=== PATIENT | female | born 1965 | race African-American/Black ===

== ENCOUNTER 2016-08-18 09:49 | Emergency (ER) | payer OTHER ==
[~2016-08-18] VITALS: Ht 170.2 cm; Wt 144.6 kg
[~2016-08-18 09:49] MED LIST: ATORVASTATIN CA40 MG PO; CELECOXIB200 MG PO; CLONAZEPAM0.5 MG PO; COMPAZINE10 MG PO; CYMBALTA20 MG PO; CYMBALTA60 MG PO; DECADRON4 MG PO; DILAUDID2 MG PO; FENTANYL1 EAC5 TD; FLAGYL500 MG PO; FLEXERIL10 MG PO; FLUOXETINE HCL20 MG PO; FOLIC ACID1 MG PO; HYDROCODON-ACE1 EAC7 PO; HYDROCODON-ACE1 EAC8 PO; K-DUR20 MEQ PO; KLONOPIN1 MG PO; LIDOCAINE700 MG TD; LISINOPRIL10 MG PO; LOPRESSOR25 MG PO; LYRICA75 MG PO; MAG-OXIDE400 MG PO; MEDROL DOSEPAK4 MG PO; MEGACE20 MG PO; METFORMIN HCL1000 MG PO; METFORMIN HCL500 MG PO; METFORMIN HCL850 MG PO; MORPHINE SULFAT15 M1 PO; NAPROSYN500 MG PO; NITROSTAT0.4 MG SL; OXYCODONE HCL15 MG PO; OXYCODONE HCL5 MG PO; PERCOCET 5/31 TABLET PO; PREDNISONE20 MG PO; PROMETHAZINE HC25 M1 PO; RISPERDAL2 MG PO; RISPERIDONE1 MG PO; SERTRALINE HCL25 MG PO; SERTRALINE HCL50 MG PO; SIMVASTATIN10 MG PO; TRAMADOL PO; TRAZODONE HCL50 MG PO; Tums,OsCal PO; ULTRAM50 MG PO; VALIUM2 MG PO; VALIUM5 MG PO; VICODIN 5-3001 EACH PO; ZESTRIL2.5 MG PO; ZOCOR10 MG PO; ZOFRAN ODT4 MG PO; ZOFRAN4 MG PO
[2016-08-18] MEDS ORDERED: MORPHINE SULFAT30 M2 PO (10:40)
[2016-08-18] MEDS ORDERED: OXYCODONE HCL30 MG PO (10:40)
[2016-08-18 11:23] LABS: BASOPHIL COUNT 0.1 K/uL (0-0.1); EOSINOPHIL (%) 9.8 % (0-5); EOSINOPHIL COUNT 0.3 K/uL (0-0.3); HEMATOCRIT 31.8 % (36.0-46.0); IMMATURE GRANULOCYTE (%) 0.4 % (0.0-0.7); IMMATURE GRANULOCYTE COUNT 0.1 K/uL; MCH 27.2 PG (29.0-34.0); MCHC 32.4 G/DL (30.0-36.0); MCV 84.1 FL (83-99); MONOCYTE (%) 5.5 % (3-12); MONOCYTE COUNT 0.1 K/uL (0-0.8); NEUTROPHIL (%) 41.5 % (45-76); NEUTROPHIL COUNT 1.1 K/uL (1.8-6.4); RBC DIS.WIDTH-SD 43.7 % (39-53); RED BLOOD COUNT 3.78 M/uL (3.80-5.20); WHITE BLOOD COUNT 2.6 K/uL (4.1-10.2)
[2016-08-18 11:33] LABS: CHLORIDE 103 mEq/L (99-109); POTASSIUM 3.6 mEq/L (3.7-5.4); SODIUM 137 mEq/L (136-147)
[2016-08-18 11:35] LABS: GLUCOSE 139 mg/dL (70-99)
[2016-08-18 11:36] LABS: ANION GAP 12 MEQ/L (2-14)
[2016-08-18 11:39] LABS: GFR ESTIMATE (CALCULATED) > 59 mL/min/
[2016-08-18 11:40] LABS: UREA NITROGEN (BUN) 6 mg/dL (9-23)
[2016-08-18 12:01] LABS: PLAT.SUFFICIENCY ADEQUATE; PLATELET COUNT 282 K/uL (156-360); USER ID SDF
[2016-08-18 12:14] VITALS: BP 109/72
== END 2016-08-18 12:19 | disposition home or self-care (01) ==
LOC: EME → EDBD 09:49 → EME 09:49
PROVIDERS: Emergency Medicine
DX: R07.89 Other chest pain (principal); R07.81 Pleurodynia; C50.919 Malignant neoplasm of unspecified site of unspecified female breast; C79.51 Secondary malignant neoplasm of bone; G89.29 Other chronic pain; Z79.891 Long term (current) use of opiate analgesic; Z87.891 Personal history of nicotine dependence
CPT/HCPCS: 71010; 80048; 85025; 99281; 99284; J1885

== ENCOUNTER 2016-10-09 12:17 | Emergency (ER) | payer OTHER ==
[~2016-10-09] VITALS: Ht 170.2 cm; Wt 137.2 kg
[~2016-10-09 12:17] MED LIST changes: +IBRANCE75 MG PO; +MORPHINE SULFAT30 M2 PO; +OXYCODONE HCL30 MG PO
[2016-10-09 14:34] LABS: HEMATOCRIT 34.7 % (36.0-46.0); MCH 29.5 PG (29.0-34.0); MCHC 34.3 G/DL (30.0-36.0); MCV 85.9 FL (83-99); MEAN PLAT.VOLUME 8.6 uM^3 (9.5-12.4); PLATELET COUNT 262 K/uL (156-360); RBC DIS.WIDTH-CV 20.7 % (11.8-14.6); RED BLOOD COUNT 4.04 M/uL (3.80-5.20); WHITE BLOOD COUNT 7.9 K/uL (4.1-10.2)
[2016-10-09 14:38] LABS: EOSINOPHIL (%) 0.6 % (0-5); EOSINOPHIL COUNT 0.1 K/uL (0-0.3); IMMATURE GRANULOCYTE (%) 0.1 % (0.0-0.7); IMMATURE GRANULOCYTE COUNT 0.1 K/uL; LYMPHOCYTE COUNT 3.6 K/uL (1.0-2.8); MONOCYTE (%) 2.9 % (3-12); MONOCYTE COUNT 0.2 K/uL (0-0.8); NEUTROPHIL (%) 50.4 % (45-76)
[2016-10-09 14:44] LABS: CHLORIDE 104 mEq/L (99-109); POTASSIUM 3.5 mEq/L (3.7-5.4); SODIUM 139 mEq/L (136-147)
[2016-10-09 14:46] LABS: GLUCOSE 119 mg/dL (70-99)
[2016-10-09 14:48] LABS: ANION GAP 9 MEQ/L (2-14); TOTAL BILIRUBIN 0.5 mg/dL (0.0-1.0)
[2016-10-09 14:50] LABS: ALKALINE PHOSPHATASE 71 IU/L (3-129); GFR ESTIMATE (CALCULATED) > 59 mL/min/
[2016-10-09 14:51] LABS: UREA NITROGEN (BUN) 12 mg/dL (9-23)
[2016-10-09 14:53] LABS: LIPASE 6 U/L (1.0-51.0)
[2016-10-09 16:09] LABS: ADD MIUA? NO; BILIRUBIN NEGATIVE; BLOOD NEGATIVE; COLOR YELLOW ((YELLOW)); GLUCOSE (STRIP) NEGATIVE; KETONES NEGATIVE; LEUKOCYTES NEGATIVE; NITRITE NEGATIVE; PROTEIN (STRIP) NEGATIVE; SPECIFIC GRAVITY 1.018 (1.000-1.030)
[2016-10-09 17:02] LABS: AMPHETAMINE NEGATIVE (500 ng/mL); BARBITURATES NEGATIVE (200 ng/mL); BENZODIAZEPINES NEGATIVE (150 ng/mL); COCAINE NEGATIVE (150 ng/mL); INTERNAL CONTROLS VALID? YES; METHADONE NEGATIVE (200 ng/mL); METHAMPHETAMINE NEGATIVE (500 ng/mL); OPIATES (MORPHINE) NEGATIVE (100 ng/mL); OXYCODONE PRESUMPTIVE POSITIVE (100 ng/mL); PHENCYCLIDINE NEGATIVE (25 ng/mL); PROPOXYPHENE NEGATIVE (300 ng/mL); THC CANNABINOIDS NEGATIVE (50 ng/mL); TRICYCLIC ANTIDEPRESSANTS NEGATIVE (300 ng/mL)
[2016-10-09 17:05] VITALS: BP 121/62
== END 2016-10-09 18:46 | disposition home or self-care (01) ==
LOC: EME 12:17
PROVIDERS: Physician Assistant
DX: C50.919 Malignant neoplasm of unspecified site of unspecified female breast (principal); C79.51 Secondary malignant neoplasm of bone; G89.29 Other chronic pain; R11.0 Nausea; Z79.899 Other long term (current) drug therapy; R53.1 Weakness; Z79.891 Long term (current) use of opiate analgesic; Z87.891 Personal history of nicotine dependence
CPT/HCPCS: 80053; 81003; 83690; 85025; 99281; 99285; J1170; J1200; J2405; J2765; J3010; J7030; J7050

== ENCOUNTER 2016-11-04 16:31 | Emergency (ER) | payer OTHER ==
[~2016-11-04] VITALS: Ht 170.2 cm; Wt 134.6 kg
[2016-11-04 17:25] LABS: HEMATOCRIT 31.3 % (36.0-46.0); MCH 30.8 PG (29.0-34.0); MCHC 34.2 G/DL (30.0-36.0); MEAN PLAT.VOLUME 8.6 uM^3 (9.5-12.4); PLATELET COUNT 255 K/uL (156-360); RBC DIS.WIDTH-CV 20.3 % (11.8-14.6); RED BLOOD COUNT 3.47 M/uL (3.80-5.20)
[2016-11-04 17:26] LABS: WHITE BLOOD COUNT 3.3 K/uL (4.1-10.2)
[2016-11-04 17:27] LABS: MCV 90.2 FL (83-99)
[2016-11-04 17:34] LABS: CHLORIDE 101 mEq/L (99-109); POTASSIUM 2.6 mEq/L (3.7-5.4); SODIUM 142 mEq/L (136-147)
[2016-11-04 17:36] LABS: GLUCOSE 184 mg/dL (70-99)
[2016-11-04 17:37] LABS: ANION GAP 13 MEQ/L (2-14)
[2016-11-04 17:40] LABS: GFR ESTIMATE (CALCULATED) > 59 mL/min/
[2016-11-04 17:41] LABS: TROP-I INTERPRETATION NEGATIVE; TROPONIN-I < 0.01 ng/mL (0.0-0.30)
[2016-11-04 17:41] LABS: UREA NITROGEN (BUN) 6 mg/dL (9-23)
[2016-11-04 19:35] LABS: INFLUENZA A VIRAL ANTIGEN NEGATIVE; INFLUENZA B VIRAL ANTIGEN NEGATIVE
[2016-11-04 21:01] LABS: HEMATOCRIT 31.1 % (36.0-46.0); MCHC 34.1 G/DL (30.0-36.0); MCV 90.9 FL (83-99); MEAN PLAT.VOLUME 8.9 uM^3 (9.5-12.4); NRBC (%) 0.6 /100 WBC (0-0); PLATELET COUNT 275 K/uL (156-360); RBC DIS.WIDTH-CV 20.7 % (11.8-14.6); RED BLOOD COUNT 3.42 M/uL (3.80-5.20); WHITE BLOOD COUNT 3.2 K/uL (4.1-10.2)
[2016-11-04 21:50] LABS: EOSINOPHIL (%) 0.3 % (0-5); IMMATURE GRANULOCYTE (%) 0.6 % (0.0-0.7); INSTRUMENT ABS NEUTROPHIL CT 1.5 K/uL; LYMPHOCYTE COUNT 1.6 K/uL (1.0-2.8); MONOCYTE (%) 2.8 % (3-12); MONOCYTE COUNT 0.1 K/uL (0-0.8); NEUTROPHIL (%) 46.3 % (45-76); NEUTROPHIL COUNT 1.5 K/uL (1.8-6.4)
[2016-11-04 22:00] VITALS: BP 116/81
== END 2016-11-04 23:04 | disposition home or self-care (01) ==
LOC: EME 16:31
PROVIDERS: Emergency Medicine
DX: J06.9 Acute upper respiratory infection, unspecified (principal); C79.51 Secondary malignant neoplasm of bone; C50.919 Malignant neoplasm of unspecified site of unspecified female breast; G89.29 Other chronic pain; E11.9 Type 2 diabetes mellitus without complications; I10 Essential (primary) hypertension; Z87.891 Personal history of nicotine dependence
CPT/HCPCS: 71020; 80048; 84484; 85025; 85027; 87502; 93005; 99281; 99285; J3480; J7030

== ENCOUNTER 2016-12-13 13:40 | Emergency (ER) | payer OTHER ==
[~2016-12-13] VITALS: Ht 170.2 cm; Wt 136.0 kg
[2016-12-13 16:58] LABS: HEMATOCRIT 32.3 % (36.0-46.0); MCH 33.3 PG (29.0-34.0); MCHC 33.1 G/DL (30.0-36.0); MCV 100.6 FL (83-99); MEAN PLAT.VOLUME 8.6 uM^3 (9.5-12.4); PLATELET COUNT 321 K/uL (156-360); RBC DIS.WIDTH-CV 17.3 % (11.8-14.6); RBC DIS.WIDTH-SD 65.1 % (39-53); RED BLOOD COUNT 3.21 M/uL (3.80-5.20); WHITE BLOOD COUNT 3.8 K/uL (4.1-10.2)
[2016-12-13 17:07] LABS: CHLORIDE 105 mEq/L (99-109); POTASSIUM 3.4 mEq/L (3.7-5.4); SODIUM 142 mEq/L (136-147)
[2016-12-13 17:09] LABS: GLUCOSE 138 mg/dL (70-99)
[2016-12-13 17:10] LABS: ANION GAP 12 MEQ/L (2-14)
[2016-12-13 17:13] LABS: GFR ESTIMATE (CALCULATED) > 59 mL/min/; UREA NITROGEN (BUN) 6 mg/dL (9-23)
[2016-12-13 20:43] VITALS: BP 127/75
== END 2016-12-13 20:50 | disposition home or self-care (01) ==
LOC: EME 13:40
PROVIDERS: Emergency Medicine
DX: R51 Headache (principal); C50.919 Malignant neoplasm of unspecified site of unspecified female breast; C79.51 Secondary malignant neoplasm of bone; E11.9 Type 2 diabetes mellitus without complications; I10 Essential (primary) hypertension; Z87.891 Personal history of nicotine dependence
CPT/HCPCS: 70450; 80048; 81003; 85027; 99281; 99284

== ENCOUNTER 2017-03-20 04:14 | Emergency (ER) | payer OTHER ==
[~2017-03-20] VITALS: Ht 170.2 cm; Wt 143.0 kg
[2017-03-20] MEDS ORDERED: CORTISONE60 GM TP (04:42)
[2017-03-20 06:32] VITALS: BP 138/80
== END 2017-03-20 06:33 | disposition home or self-care (01) ==
LOC: EME 04:14
DX: M79.605 Pain in left leg (principal); I10 Essential (primary) hypertension; Z85.3 Personal history of malignant neoplasm of breast; Z87.891 Personal history of nicotine dependence
CPT/HCPCS: 99281; 99282

== ENCOUNTER 2017-05-09 23:01 | Inpatient (IN) | payer OTHER ==
[~2017-05-09] VITALS: Ht 170.2 cm; Wt 103.5 kg
[~2017-05-09 23:01] MED LIST changes: +CORTISONE60 GM TP; +FENTANYL1 EAC1 TD; +IBRANCE125 MG PO; -IBRANCE75 MG PO; +SERTRALINE HCL100 MG PO
[2017-05-10] LABS: HEMATOCRIT 26.3 % (36.0-46.0); MCH 33.9 PG (29.0-34.0); MCHC 33.1 G/DL (30.0-36.0); MCV 102.3 FL (83-99); MEAN PLAT.VOLUME 8.8 uM^3 (9.5-12.4); PLATELET COUNT 274 K/uL (156-360); RBC DIS.WIDTH-CV 13.8 % (11.8-14.6); RBC DIS.WIDTH-SD 52.2 % (39-53); RED BLOOD COUNT 2.57 M/uL (3.80-5.20); WHITE BLOOD COUNT 3.5 K/uL (4.1-10.2)
[2017-05-10 00:11] LABS: CHLORIDE 105 mEq/L (99-109); POTASSIUM 2.7 mEq/L (3.7-5.4); SODIUM 142 mEq/L (136-147)
[2017-05-10 00:13] LABS: GLUCOSE 155 mg/dL (70-99)
[2017-05-10 00:14] LABS: ANION GAP 8 MEQ/L (2-14)
[2017-05-10 00:17] LABS: GFR ESTIMATE (CALCULATED) > 59 mL/min/
[2017-05-10 00:18] LABS: UREA NITROGEN (BUN) 6 mg/dL (9-23)
[2017-05-10 00:26] LABS: TROP-I INTERPRETATION NEGATIVE; TROPONIN-I < 0.01 ng/mL (0.0-0.30)
[2017-05-10 00:58] LABS: INTER. NORMALIZED RATIO 1.2; PROTHROMBIN TIME 12.7 SEC (10.2-12.9)
[2017-05-10 01:01] LABS: PTT 29.2 SEC (25-37)
[2017-05-10 04:14] LABS: HDL CHOLESTEROL 47 MG/DL (Desirable>=50); LDL CHOLESTEROL 80 mg/dL (Desirable<100); NON-HDL CHOLESTEROL 94 mg/dL (Desirable<160); TOTAL CHOLESTEROL 141 mg/dL (Desirable<200); TRIGLYCERIDES 72 MG/DL (Normal: <150)
[2017-05-10 05:57] LABS: MAGNESIUM 1.7 mg/dL (1.3-2.7)
[2017-05-10 06:19] VITALS: BP 142/75
[2017-05-10 07:08] LABS: Estimated Average Glucose 148 mg/dL (70-123); HEMOGLOBIN A1c (GLYCOHEMOGLOB) 6.8 % HGB (Below 5.7)
[2017-05-10 07:46] VITALS: BP 118/71
[2017-05-10 09:08] LABS: CHLORIDE 108 mEq/L (99-109); POTASSIUM 3.1 mEq/L (3.7-5.4); SODIUM 143 mEq/L (136-147)
[2017-05-10 09:10] LABS: GLUCOSE 136 mg/dL (70-99)
[2017-05-10 09:11] LABS: ANION GAP 9 MEQ/L (2-14)
[2017-05-10 09:14] LABS: GFR ESTIMATE (CALCULATED) > 59 mL/min/; UREA NITROGEN (BUN) 5 mg/dL (9-23)
[2017-05-10] MEDS ORDERED: PROMETHAZINE HC25 M1 PO (11:13)
[2017-05-10] MEDS ORDERED: PRAZOSIN HCL1 MG PO (11:13)
[2017-05-10] MEDS ORDERED: ATORVASTATIN CA20 MG PO (11:13)
[2017-05-10] MEDS ORDERED: POTASSIUM CHLO20 ME1 PO (11:13)
[2017-05-10] MEDS ORDERED: MIRALAX17 GM PO (11:14)
[2017-05-10 12:00] VITALS: BP 117/75
[2017-05-10 12:55] LABS: TROP-I INTERPRETATION NEGATIVE; TROPONIN-I < 0.01 ng/mL (0.0-0.30)
[2017-05-10 16:00] VITALS: BP 104/67
[2017-05-10 18:20] LABS: TROP-I INTERPRETATION NEGATIVE; TROPONIN-I 0.02 ng/mL (0.0-0.30)
[2017-05-10 19:25] VITALS: BP 120/72
[2017-05-10 23:52] VITALS: BP 112/55
[2017-05-11 03:27] VITALS: BP 115/66
[2017-05-11 07:29] LABS: HEMATOCRIT 25.6 % (36.0-46.0); MCH 35.8 PG (29.0-34.0); MCHC 33.6 G/DL (30.0-36.0); MEAN PLAT.VOLUME 9.1 uM^3 (9.5-12.4); PLATELET COUNT 295 K/uL (156-360); RBC DIS.WIDTH-CV 14.4 % (11.8-14.6)
[2017-05-11 07:30] LABS: MCV 106.7 FL (83-99)
[2017-05-11 07:31] LABS: ANION GAP 7 MEQ/L (2-14); CHLORIDE 106 MEQ/L (99-109); GFR ESTIMATE (CALCULATED) > 59 mL/min/; GLUCOSE 129 mg/dL (70-99); IRON 65 MCG/DL (35-150); MAGNESIUM 1.8 mg/dl (1.3-2.7); SAMPLE HEMOLYSIS CHECK 0; SAMPLE ICTERIC CHECK 0; SAMPLE LIPEMIA CHECK 0; SODIUM 143 MEQ/L (136-147); UREA NITROGEN (BUN) 7 mg/dL (9-23)
[2017-05-11 07:32] LABS: POTASSIUM 3.9 MEQ/L (3.7-5.4)
[2017-05-11 07:37] VITALS: BP 119/69
[2017-05-11 11:31] VITALS: BP 107/67
[2017-05-11] MEDS ORDERED: DUONEB 2.5-0.5 M3 ML AEROSOL (11:31)
[2017-05-11] MEDS ORDERED: LOPRESSOR25 MG PO (11:31)
[2017-05-11] MEDS ORDERED: FAMOTIDINE20 MG PO (11:31)
[2017-05-11] MEDS ORDERED: PRAVASTATIN SOD80 MG PO (11:31)
[2017-05-11] MEDS ORDERED: SENOKOT,SENN1 TABLET PO (14:40)
[2017-05-11] MEDS ORDERED: ECOTRIN325 MG PO (14:41)
[2017-05-11] MEDS ORDERED: LOVENOX100 MG/1 M SC (14:42)
[2017-05-11] MEDS ORDERED: TYLENOL REGULA325 MG PO (14:43)
[2017-05-11] MEDS ORDERED: IBRANCE125 MG PO (14:43)
== END 2017-05-11 14:10 | DRG 69 ==
LOC: EME → EDBD 23:01 → EDOF 05-10 02:40 → ENRESERV 05-10 02:44 → CANRESERV 05-10 03:02 → ENRESERV 05-10 03:02 → EDOF 05-10 03:25 → ENRESERV 05-10 03:29 → 5SOUTH 05-10 06:06
PROVIDERS: Emergency Medicine; Hospitalist; Internal Medicine
DX: G45.8 Other transient cerebral ischemic attacks and related syndromes (principal); I26.99 Other pulmonary embolism without acute cor pulmonale; C79.51 Secondary malignant neoplasm of bone; F33.9 Major depressive disorder, recurrent, unspecified; C50.411 Malignant neoplasm of upper-outer quadrant of right female breast; E11.9 Type 2 diabetes mellitus without complications; T38.6X5A Adverse effect of antigonadotrophins, antiestrogens, antiandrogens, not elsewhere classified, initial encounter; E78.5 Hyperlipidemia, unspecified; I10 Essential (primary) hypertension; E87.6 Hypokalemia; E66.01 Morbid (severe) obesity due to excess calories; D64.9 Anemia, unspecified; M54.16 Radiculopathy, lumbar region; F41.9 Anxiety disorder, unspecified; Z17.0 Estrogen receptor positive status [ER+]; Z90.49 Acquired absence of other specified parts of digestive tract; Z88.5 Allergy status to narcotic agent; Z68.32 Body mass index [BMI] 32.0-32.9, adult; Z87.891 Personal history of nicotine dependence; Z83.3 Family history of diabetes mellitus; Z82.49 Family history of ischemic heart disease and other diseases of the circulatory system
CPT/HCPCS: 70450; 70551; 71020; 71275; 80048; 80048 91; 80061; 82040; 82607; 82746; 83036; 83540; 83735; 84443; 84466; 84484; 85027; 85610; 85730; 93005; 93970; 96361; 96365; 96402; 99202; 99281; 99285; J1650; J2270; J2405; J3489; J7040; J9395; Q0169

== ENCOUNTER 2017-05-11 12:01 | Inpatient (IN) | payer OTHER ==
[~2017-05-11] VITALS: Ht 167.6 cm; Wt 146.9 kg
[~2017-05-11 12:01] MED LIST changes: +ATORVASTATIN CA20 MG PO; +DUONEB 2.5-0.5 M3 ML AEROSOL; +FAMOTIDINE20 MG PO; +MIRALAX17 GM PO; +POTASSIUM CHLO20 ME1 PO; +PRAVASTATIN SOD80 MG PO; +PRAZOSIN HCL1 MG PO
[2017-05-11 14:26] VITALS: BP 128/63
[2017-05-11] MEDS ORDERED: SENOKOT,SENN1 TABLET PO (14:40)
[2017-05-11] MEDS ORDERED: ECOTRIN325 MG PO (14:41)
[2017-05-11] MEDS ORDERED: LOVENOX100 MG/1 M SC (14:42)
[2017-05-11] MEDS ORDERED: TYLENOL REGULA325 MG PO (14:43)
[2017-05-11] MEDS ORDERED: IBRANCE125 MG PO (14:43)
[2017-05-11 15:35] VITALS: BP 88/44
[2017-05-11 20:40] VITALS: BP 110/69
[2017-05-12 04:57] VITALS: BP 102/53
[2017-05-12 16:00] VITALS: BP 107/59; BP 147/65
[2017-05-13 04:59] VITALS: BP 118/66
[2017-05-13 05:12] LABS: HEMATOCRIT 24.1 % (36.0-46.0); MCH 33.8 PG (29.0-34.0); MCHC 32.4 G/DL (30.0-36.0); MCV 104.3 FL (83-99); MEAN PLAT.VOLUME 8.8 uM^3 (9.5-12.4); PLATELET COUNT 292 K/uL (156-360); RBC DIS.WIDTH-CV 13.3 % (11.8-14.6); RBC DIS.WIDTH-SD 50.9 % (39-53); RED BLOOD COUNT 2.31 M/uL (3.80-5.20); WHITE BLOOD COUNT 3.8 K/uL (4.1-10.2)
[2017-05-13 05:30] LABS: CHLORIDE 105 mEq/L (99-109); POTASSIUM 4.2 mEq/L (3.7-5.4); SODIUM 137 mEq/L (136-147)
[2017-05-13 05:32] LABS: GLUCOSE 102 mg/dL (70-99)
[2017-05-13 05:33] LABS: ANION GAP 4 MEQ/L (2-14)
[2017-05-13 05:34] LABS: TOTAL BILIRUBIN 0.4 mg/dL (0.0-1.0)
[2017-05-13 05:36] LABS: ALKALINE PHOSPHATASE 69 IU/L (3-129); GFR ESTIMATE (CALCULATED) > 59 mL/min/
[2017-05-13 05:37] LABS: UREA NITROGEN (BUN) 7 mg/dL (9-23)
[2017-05-13 06:32] LABS: ABS NEUTROPHIL COUNT 2.2; ANISOCYTOSIS 1+; ATYPICAL LYMPHOCYTE 0.9 %; BASOPHILS 2.7 %; EOSINOPHIL ABS CT 0.1; EOSINOPHILS 2.6 % (0-5.0); INSTRUMENT ABS NEUTROPHIL CT 1.9 K/uL; LYMPHOCYTES 35.4 % (15.0-45.0); MACROCYTES 1+; NUCLEATED RBC'S 0.9; PLAT.SUFFICIENCY ADEQUATE; SEG.NEUTROPHILS 56.6 % (46.0-76.0)
[2017-05-13 15:25] VITALS: BP 116/55
[2017-05-13 21:39] LABS: INTERNAL CONTROL VALID? YES
[2017-05-14 05:11] VITALS: BP 111/59
[2017-05-14 14:04] LABS: EOSINOPHIL (%) 1.4 % (0-5); EOSINOPHIL COUNT 0.1 K/uL (0-0.3); HEMATOCRIT 26.1 % (36.0-46.0); IMMATURE GRANULOCYTE (%) 0.3 % (0.0-0.7); LYMPHOCYTE COUNT 1.3 K/uL (1.0-2.8); MCH 33.5 PG (29.0-34.0); MCHC 31.8 G/DL (30.0-36.0); MCV 105.2 FL (83-99); MEAN PLAT.VOLUME 9.1 uM^3 (9.5-12.4); MONOCYTE (%) 5.4 % (3-12); MONOCYTE COUNT 0.2 K/uL (0-0.8); NEUTROPHIL (%) 55.4 % (45-76); NRBC (%) 0.6 /100 WBC (0-0); PLATELET COUNT 326 K/uL (156-360); RBC DIS.WIDTH-CV 13.8 % (11.8-14.6); RBC DIS.WIDTH-SD 52.8 % (39-53); RED BLOOD COUNT 2.48 M/uL (3.80-5.20); WHITE BLOOD COUNT 3.5 K/uL (4.1-10.2)
[2017-05-14 14:20] LABS: ALKALINE PHOSPHATASE 61 IU/L (3-129); ANION GAP 5 MEQ/L (2-14); CHLORIDE 101 MEQ/L (99-109); GFR ESTIMATE (CALCULATED) > 59 mL/min/; GLUCOSE 116 mg/dL (70-99); POTASSIUM 4.5 MEQ/L (3.7-5.4); SAMPLE HEMOLYSIS CHECK 0; SAMPLE ICTERIC CHECK 0; SAMPLE LIPEMIA CHECK 0; SODIUM 138 MEQ/L (136-147); TOTAL BILIRUBIN 0.3 MG/DL (0.0-1.0); UREA NITROGEN (BUN) 8 mg/dL (9-23)
[2017-05-14] MEDS ORDERED: LOVENOX100 MG/1 M SC (14:30)
[2017-05-14 14:46] VITALS: BP 114/53
[2017-05-15 05:37] VITALS: BP 98/53
[2017-05-15 07:45] VITALS: BP 108/56
[2017-05-15 09:40] VITALS: BP 113/63
[2017-05-15 15:19] VITALS: BP 90/44
[2017-05-15 20:39] VITALS: BP 120/56
[2017-05-16 04:49] VITALS: BP 114/67
[2017-05-16 07:15] VITALS: BP 111/58
[2017-05-16] MEDS ORDERED: FAMOTIDINE20 MG PO (11:05)
[2017-05-16] MEDS ORDERED: LOPRESSOR25 MG PO (11:05)
== END 2017-05-16 13:25 | disposition home health service (06) | DRG 555 ==
LOC: 3WEST 12:01 → ENPENDDIS 05-16 → 3WEST 05-16 13:25
PROVIDERS: Anesthesiology
PROC: F07M0ZZ Range of Motion and Joint Mobility Treatment of Musculoskeletal System - Whole Body (ICD-10-PCS; principal; 2017-05-11)
DX: R26.2 Difficulty in walking, not elsewhere classified (principal); G45.9 Transient cerebral ischemic attack, unspecified; C50.919 Malignant neoplasm of unspecified site of unspecified female breast; I26.99 Other pulmonary embolism without acute cor pulmonale; R07.9 Chest pain, unspecified; E78.5 Hyperlipidemia, unspecified; E66.01 Morbid (severe) obesity due to excess calories; E11.9 Type 2 diabetes mellitus without complications; C79.51 Secondary malignant neoplasm of bone; F41.9 Anxiety disorder, unspecified; R10.9 Unspecified abdominal pain; E87.2 Acidosis; G89.3 Neoplasm related pain (acute) (chronic); E83.51 Hypocalcemia; M54.16 Radiculopathy, lumbar region; R11.2 Nausea with vomiting, unspecified; E87.6 Hypokalemia; T45.1X5A Adverse effect of antineoplastic and immunosuppressive drugs, initial encounter; E86.0 Dehydration; E83.42 Hypomagnesemia; M54.2 Cervicalgia; F32.9 Major depressive disorder, single episode, unspecified; D64.9 Anemia, unspecified; I10 Essential (primary) hypertension; Z68.43 Body mass index [BMI] 50.0-59.9, adult; Z17.0 Estrogen receptor positive status [ER+]; Z87.891 Personal history of nicotine dependence; Z79.899 Other long term (current) drug therapy
CPT/HCPCS: 71010; 80048; 80053; 82272; 85025; 97110 GO; 97530 GP; 99202; J1650

== ENCOUNTER 2017-06-27 22:08 | Emergency (ER) | payer OTHER ==
[~2017-06-27] VITALS: Ht 170.2 cm; Wt 141.2 kg
[~2017-06-27 22:08] MED LIST changes: +ECOTRIN325 MG PO; +LOVENOX100 MG/1 M SC; +SENOKOT,SENN1 TABLET PO; +TYLENOL REGULA325 MG PO
[2017-06-27 22:53] LABS: HEMATOCRIT 30.5 % (36.0-46.0); MCHC 32.5 G/DL (30.0-36.0); MCV 98.7 FL (83-99); MEAN PLAT.VOLUME 9.1 uM^3 (9.5-12.4); PLATELET COUNT 253 K/uL (156-360); RBC DIS.WIDTH-CV 13.9 % (11.8-14.6); RBC DIS.WIDTH-SD 49.5 % (39-53); RED BLOOD COUNT 3.09 M/uL (3.80-5.20); WHITE BLOOD COUNT 3.8 K/uL (4.1-10.2)
[2017-06-27 23:09] LABS: CHLORIDE 105 mEq/L (99-109); POTASSIUM 3.4 mEq/L (3.7-5.4); SODIUM 139 mEq/L (136-147)
[2017-06-27 23:11] LABS: GLUCOSE 144 mg/dL (70-99)
[2017-06-27 23:13] LABS: ANION GAP 9 MEQ/L (2-14); TOTAL BILIRUBIN 0.3 mg/dL (0.0-1.0)
[2017-06-27 23:15] LABS: ALKALINE PHOSPHATASE 91 IU/L (3-129); GFR ESTIMATE (CALCULATED) > 59 mL/min/
[2017-06-27 23:16] LABS: UREA NITROGEN (BUN) 8 mg/dL (9-23)
[2017-06-27 23:38] LABS: LIPASE 13 U/L (1.0-51.0)
[2017-06-28 00:40] LABS: ADD MIUA? YES; BILIRUBIN NEGATIVE; BLOOD NEGATIVE; COLOR YELLOW ((YELLOW)); GLUCOSE (STRIP) NEGATIVE; KETONES NEGATIVE; LEUKOCYTES MODERATE; NITRITE NEGATIVE; PROTEIN (STRIP) NEGATIVE; SPECIFIC GRAVITY 1.045 (1.000-1.030)
[2017-06-28 00:53] LABS: BACTERIA NONE SEEN /HPF; EPITHELIAL CELLS RARE /HPF; MUCUS NONE SEEN /LPF; RED BLOOD CELLS 0-5 /HPF (0-5); UCUL ADDED? YES; WHITE BLOOD CELLS 15-20 /HPF (0-5)
[2017-06-28 01:22] VITALS: BP 127/78
== END 2017-06-28 01:28 | disposition home or self-care (01) ==
LOC: EME 22:08
DX: R10.12 Left upper quadrant pain (principal); R11.2 Nausea with vomiting, unspecified; Z85.3 Personal history of malignant neoplasm of breast; C79.51 Secondary malignant neoplasm of bone; G89.3 Neoplasm related pain (acute) (chronic); Z92.21 Personal history of antineoplastic chemotherapy; I10 Essential (primary) hypertension; E11.9 Type 2 diabetes mellitus without complications; F32.9 Major depressive disorder, single episode, unspecified; F41.9 Anxiety disorder, unspecified; Z87.891 Personal history of nicotine dependence; Z90.49 Acquired absence of other specified parts of digestive tract
CPT/HCPCS: 74177; 80053; 81003; 83690; 84702; 85027; 87086 GA; 99281; 99285; J2270; J2405

== ENCOUNTER 2017-08-15 14:25 | Emergency (ER) | payer OTHER ==
[~2017-08-15] VITALS: Ht 170.2 cm; Wt 145.9 kg
[2017-08-15 17:38] LABS: HEMATOCRIT 30.1 % (36.0-46.0); HEMOGLOBIN 10.1 G/DL (11.9-15.5); MCH 32.7 PG (29.0-34.0); MCHC 33.6 G/DL (30.0-36.0); MCV 97.4 FL (83-99); RBC DIS.WIDTH-CV 16.2 % (11.8-14.6); RBC DIS.WIDTH-SD 57.1 % (39-53); RED BLOOD COUNT 3.09 M/uL (3.80-5.20); WHITE BLOOD COUNT 4.3 K/uL (4.1-10.2)
[2017-08-15 17:47] LABS: CHLORIDE 105 mEq/L (99-109); POTASSIUM 3.9 mEq/L (3.7-5.4); SODIUM 141 mEq/L (136-147)
[2017-08-15 17:49] LABS: GLUCOSE 108 mg/dL (70-99)
[2017-08-15 17:53] LABS: CREATININE 1.2 mg/dL (0.6-1.3); GFR ESTIMATE (CALCULATED) > 59 mL/min/
[2017-08-15 17:54] LABS: UREA NITROGEN (BUN) 11 mg/dL (9-23)
[2017-08-15 18:00] LABS: TROP-I INTERPRETATION NEGATIVE; TROPONIN-I < 0.01 ng/mL (0.0-0.30)
[2017-08-15 18:06] LABS: APPEARANCE CLEAR ((CLEAR)); BILIRUBIN NEGATIVE; BLOOD NEGATIVE; COLOR YELLOW ((YELLOW)); GLUCOSE (STRIP) NEGATIVE; KETONES NEGATIVE; LEUKOCYTES NEGATIVE; NITRITE NEGATIVE; PROTEIN (STRIP) NEGATIVE; SPECIFIC GRAVITY 1.017 (1.000-1.030)
[2017-08-15 18:23] LABS: BASOPHIL (%) 1.9 % (0-1); BASOPHIL COUNT 0.1 K/uL (0-0.1); EOSINOPHIL (%) 0.5 % (0-5); IMMATURE GRANULOCYTE (%) 0.7 % (0.0-0.7); LYMPHOCYTE (%) 38.2 % (15-42); LYMPHOCYTE COUNT 1.6 K/uL (1.0-2.8); MONOCYTE (%) 3.3 % (3-12); MONOCYTE COUNT 0.1 K/uL (0-0.8); NEUTROPHIL (%) 55.4 % (45-76); NEUTROPHIL COUNT 2.4 K/uL (1.8-6.4); PLATELET COUNT 401 K/uL (156-360)
[2017-08-15 18:50] LABS: INTER. NORMALIZED RATIO 1.1
[2017-08-15 18:52] LABS: PTT 30.2 SEC (25-37)
[2017-08-15] MEDS ORDERED: PROMETHAZINE HC25 M1 PO (19:53)
[2017-08-15] MEDS ORDERED: TAMIFLU75 MG PO (19:53)
[2017-08-15 20:21] VITALS: BP 138/76
== END 2017-08-15 20:22 | disposition home or self-care (01) ==
LOC: EME 14:25
PROVIDERS: Physician Assistant
DX: J10.1 Influenza due to other identified influenza virus with other respiratory manifestations (principal); R11.2 Nausea with vomiting, unspecified; M54.9 Dorsalgia, unspecified; R00.0 Tachycardia, unspecified; Z85.3 Personal history of malignant neoplasm of breast; Z85.830 Personal history of malignant neoplasm of bone; Z92.21 Personal history of antineoplastic chemotherapy; Z90.49 Acquired absence of other specified parts of digestive tract; Z87.891 Personal history of nicotine dependence
CPT/HCPCS: 71046; 71275; 80048; 81003; 83605; 84484; 85025; 85379; 85610; 85730; 87040; 87502; 93005; 99281; 99285; J2270; J7030

== ENCOUNTER 2017-08-17 08:06 | Inpatient (IN) | payer OTHER ==
[~2017-08-17] VITALS: Ht 170.2 cm; Wt 146.2 kg
[2017-08-17] VITALS (11 sets, daily range): BP systolic 110–168; BP diastolic 60–88
[~2017-08-17 08:06] MED LIST changes: +TAMIFLU75 MG PO
[2017-08-17 09:01] LABS: HEMATOCRIT 26.6 % (36.0-46.0); HEMOGLOBIN 8.9 G/DL (11.9-15.5); MCH 32.7 PG (29.0-34.0); MCHC 33.5 G/DL (30.0-36.0); MCV 97.8 FL (83-99); PLATELET COUNT 314 K/uL (156-360); RBC DIS.WIDTH-CV 16.8 % (11.8-14.6); RBC DIS.WIDTH-SD 59.5 % (39-53); RED BLOOD COUNT 2.72 M/uL (3.80-5.20); WHITE BLOOD COUNT 2.3 K/uL (4.1-10.2)
[2017-08-17 09:09] LABS: ALBUMIN 3.7 g/dL (3.2-4.8); CHLORIDE 104 mEq/L (99-109); POTASSIUM 3.4 mEq/L (3.7-5.4); SODIUM 135 mEq/L (136-147)
[2017-08-17 09:11] LABS: GLUCOSE 112 mg/dL (70-99)
[2017-08-17 09:12] LABS: TOTAL PROTEIN 7.2 g/dL (6.4-8.3)
[2017-08-17 09:13] LABS: TOTAL BILIRUBIN 0.5 mg/dL (0.0-1.0)
[2017-08-17 09:15] LABS: ALKALINE PHOSPHATASE 62 IU/L (3-129); CREATININE 1.1 mg/dL (0.6-1.3); GFR ESTIMATE (CALCULATED) > 59 mL/min/
[2017-08-17 09:16] LABS: UREA NITROGEN (BUN) 7 mg/dL (9-23)
[2017-08-17 09:17] LABS: AST (GOT) 10 IU/L (2-34)
[2017-08-17 09:18] LABS: ALT (GPT) 8 IU/L (3-49)
[2017-08-17 09:45] LABS: ABS NEUTROPHIL COUNT 1.4; ANISOCYTOSIS 1+; ATYPICAL LYMPHOCYTE 12.3 %; BASOPHILS 2.6 %; EOSINOPHIL ABS CT 0; EOSINOPHILS 1.7 % (0-5.0); LYMPHOCYTES 21.9 % (15.0-45.0); MACROCYTES 1+; MONOCYTES 1.8 % (0-9.0); NUCLEATED RBC'S 0.9; OVALOCYTES 1+; PLAT.SUFFICIENCY ADEQUATE; POLYCHROMASIA 1+; SEG.NEUTROPHILS 59.7 % (46.0-76.0); TARGET CELLS 1+
[2017-08-17] MEDS ORDERED: LOPRESSOR25 MG PO (12:34)
[2017-08-17] MEDS ORDERED: IBRANCE125 MG PO (12:35)
[2017-08-17] MEDS ORDERED: ATORVASTATIN CA20 MG PO (12:35)
[2017-08-17 15:38] LABS: TROP-I INTERPRETATION NEGATIVE; TROPONIN-I < 0.01 ng/mL (0.0-0.30)
[2017-08-18 04:00] VITALS: BP 152/64
[2017-08-18 06:33] LABS: HEMOGLOBIN 9.7 G/DL (11.9-15.5); MCH 31.2 PG (29.0-34.0); MCHC 32.3 G/DL (30.0-36.0); MCV 96.5 FL (83-99); PLATELET COUNT 283 K/uL (156-360); RED BLOOD COUNT 3.11 M/uL (3.80-5.20)
[2017-08-18 06:34] LABS: WHITE BLOOD COUNT 1.9 K/uL (4.1-10.2)
[2017-08-18 06:45] LABS: CHLORIDE 103 MEQ/L (99-109); CREATININE 1.1 MG/DL (0.6-1.3); GFR ESTIMATE (CALCULATED) > 59 mL/min/; GLUCOSE 126 mg/dL (70-99); SODIUM 136 MEQ/L (136-147); UREA NITROGEN (BUN) 11 mg/dL (9-23)
[2017-08-18 08:09] VITALS: BP 118/61
[2017-08-18 09:41] LABS: ABS NEUTROPHIL COUNT 0.9; ANISOCYTOSIS 1+; ATYPICAL LYMPHOCYTE 20.2 %; BAND NEUTROPHILS 0.9 % (0-8.0); EOSINOPHIL ABS CT 0; LYMPHOCYTES 30.3 % (15.0-45.0); MACROCYTES 1+; OVALOCYTES 1+; PLAT.SUFFICIENCY ADEQUATE; POIKILOCYTOSIS 1+; SEG.NEUTROPHILS 48.6 % (46.0-76.0)
[2017-08-18 11:34] VITALS: BP 112/56
[2017-08-18 16:07] VITALS: BP 142/60
[2017-08-18 16:49] LABS: HEMATOCRIT 29.6 % (36.0-46.0); HEMOGLOBIN 9.6 G/DL (11.9-15.5); MCH 31.5 PG (29.0-34.0); MCHC 32.4 G/DL (30.0-36.0); PLATELET COUNT 276 K/uL (156-360); RBC DIS.WIDTH-CV 18.7 % (11.8-14.6); RBC DIS.WIDTH-SD 66.5 % (39-53); RED BLOOD COUNT 3.05 M/uL (3.80-5.20); WHITE BLOOD COUNT 2.2 K/uL (4.1-10.2)
[2017-08-19 00:48] VITALS: BP 104/54
[2017-08-19 06:38] LABS: HEMATOCRIT 28.8 % (36.0-46.0); HEMOGLOBIN 9.2 G/DL (11.9-15.5); MCH 31.4 PG (29.0-34.0); MCHC 31.9 G/DL (30.0-36.0); MCV 98.3 FL (83-99); PLATELET COUNT 263 K/uL (156-360); RBC DIS.WIDTH-CV 17.9 % (11.8-14.6); RBC DIS.WIDTH-SD 64.8 % (39-53); RED BLOOD COUNT 2.93 M/uL (3.80-5.20); WHITE BLOOD COUNT 2.7 K/uL (4.1-10.2)
[2017-08-19 06:40] VITALS: BP 130/60
[2017-08-19 07:00] LABS: CHLORIDE 100 MEQ/L (99-109); CREATINE KINASE 55 IU/L (1-294); CREATININE 1.2 MG/DL (0.6-1.3); GFR ESTIMATE (CALCULATED) > 59 mL/min/; GLUCOSE 119 mg/dL (70-99); POTASSIUM 4.7 MEQ/L (3.7-5.4); SODIUM 132 MEQ/L (136-147); UREA NITROGEN (BUN) 11 mg/dL (9-23)
[2017-08-19 07:06] LABS: ABS NEUTROPHIL COUNT 1.4; ATYPICAL LYMPHOCYTE 1.8 %; BAND NEUTROPHILS 2.7 % (0-8.0); BASOPHILS 0.9 %; EOSINOPHIL ABS CT 0; LYMPHOCYTES 44.1 % (15.0-45.0); MONOCYTES 1.8 % (0-9.0); SEG.NEUTROPHILS 48.7 % (46.0-76.0)
[2017-08-19 15:00] VITALS: BP 121/57
[2017-08-19 23:57] VITALS: BP 115/61
[2017-08-20 06:14] LABS: HEMATOCRIT 28.2 % (36.0-46.0); HEMOGLOBIN 9.1 G/DL (11.9-15.5); MCH 31.9 PG (29.0-34.0); MCHC 32.3 G/DL (30.0-36.0); MCV 98.9 FL (83-99); PLATELET COUNT 227 K/uL (156-360); RBC DIS.WIDTH-CV 17.5 % (11.8-14.6); RBC DIS.WIDTH-SD 63.8 % (39-53); RED BLOOD COUNT 2.85 M/uL (3.80-5.20); WHITE BLOOD COUNT 2.1 K/uL (4.1-10.2)
[2017-08-20 06:45] VITALS: BP 132/62
[2017-08-20 06:53] LABS: CHLORIDE 104 MEQ/L (99-109); GFR ESTIMATE (CALCULATED) > 59 mL/min/; GLUCOSE 90 mg/dL (70-99); POTASSIUM 4.2 MEQ/L (3.7-5.4); SODIUM 136 MEQ/L (136-147); UREA NITROGEN (BUN) 8 mg/dL (9-23)
[2017-08-20 07:00] LABS: EOSINOPHIL (%) 0.5 % (0-5); IMMATURE GRANULOCYTE (%) 0.5 % (0.0-0.7); LYMPHOCYTE (%) 59.4 % (15-42); LYMPHOCYTE COUNT 1.2 K/uL (1.0-2.8); MONOCYTE (%) 5.3 % (3-12); MONOCYTE COUNT 0.1 K/uL (0-0.8); NEUTROPHIL (%) 33.3 % (45-76); NEUTROPHIL COUNT 0.7 K/uL (1.8-6.4)
== END 2017-08-20 13:38 | disposition home health service (06) | DRG 194 ==
LOC: EME 08:06 → EDOF 11:57 → 5EAST 11:57 → ENRESERV 12:07 → EDOF 12:46 → ENRESERV 15:15 → 5EAST 17:43 → ENPENDDIS 08-20 → 5EAST 08-20 13:38
PROVIDERS: Internal Medicine; Physician Assistant; Student in an Organized Health Care Education/Training Program
PROC: 30233N1 Transfusion of Nonautologous Red Blood Cells into Peripheral Vein, Percutaneous Approach (ICD-10-PCS; principal; 2017-08-17)
DX: J10.1 Influenza due to other identified influenza virus with other respiratory manifestations (principal); J10.89 Influenza due to other identified influenza virus with other manifestations; R53.1 Weakness; M79.1 Myalgia; D64.81 Anemia due to antineoplastic chemotherapy; D70.1 Agranulocytosis secondary to cancer chemotherapy; T45.1X5A Adverse effect of antineoplastic and immunosuppressive drugs, initial encounter; E87.6 Hypokalemia; C50.919 Malignant neoplasm of unspecified site of unspecified female breast; C79.51 Secondary malignant neoplasm of bone; E11.9 Type 2 diabetes mellitus without complications; E78.5 Hyperlipidemia, unspecified; F32.9 Major depressive disorder, single episode, unspecified; F41.9 Anxiety disorder, unspecified; I10 Essential (primary) hypertension; G89.29 Other chronic pain; M51.34 Other intervertebral disc degeneration, thoracic region; M51.36 Other intervertebral disc degeneration, lumbar region; M48.061 Spinal stenosis, lumbar region without neurogenic claudication; M48.04 Spinal stenosis, thoracic region; E66.01 Morbid (severe) obesity due to excess calories; Z17.0 Estrogen receptor positive status [ER+]; Z68.43 Body mass index [BMI] 50.0-59.9, adult; Z87.891 Personal history of nicotine dependence; Z79.891 Long term (current) use of opiate analgesic
CPT/HCPCS: 71046; 71275; 72157; 72158; 80048; 80053; 81003; 82550; 83605; 84484; 85025; 85027; 85379; 85610; 85730; 86850; 86900; 86901; 86920; 87040; 87502; 93005; 99202; 99281; 99285; J1650; J2270; J2405; J7030; P9040

== ENCOUNTER 2017-10-13 17:17 | Emergency (ER) | payer OTHER ==
[~2017-10-13] VITALS: Ht 170.2 cm; Wt 142.6 kg
[2017-10-13 18:26] LABS: HEMATOCRIT 32.2 % (36.0-46.0); HEMOGLOBIN 11.2 G/DL (11.9-15.5); MCH 33.2 PG (29.0-34.0); MCHC 34.8 G/DL (30.0-36.0); MCV 95.5 FL (83-99); PLATELET COUNT 365 K/uL (156-360); RBC DIS.WIDTH-CV 17.6 % (11.8-14.6); RED BLOOD COUNT 3.37 M/uL (3.80-5.20); WHITE BLOOD COUNT 3.5 K/uL (4.1-10.2)
[2017-10-13 18:35] LABS: ALBUMIN 4.2 g/dL (3.2-4.8); CHLORIDE 102 mEq/L (99-109); POTASSIUM 2.9 mEq/L (3.7-5.4); SODIUM 141 mEq/L (136-147)
[2017-10-13 18:38] LABS: GLUCOSE 136 mg/dL (70-99); TOTAL PROTEIN 8.6 g/dL (6.4-8.3)
[2017-10-13 18:40] LABS: TOTAL BILIRUBIN 0.8 mg/dL (0.0-1.0)
[2017-10-13 18:41] LABS: ALKALINE PHOSPHATASE 84 IU/L (3-129); CREATININE 0.9 mg/dL (0.6-1.3); GFR ESTIMATE (CALCULATED) > 59 mL/min/
[2017-10-13 18:42] LABS: UREA NITROGEN (BUN) 10 mg/dL (9-23)
[2017-10-13 18:43] LABS: AST (GOT) 16 IU/L (2-34)
[2017-10-13 18:44] LABS: ALT (GPT) 12 IU/L (3-49)
[2017-10-13] MEDS ORDERED: DILAUDID2 MG PO (21:08)
[2017-10-13] MEDS ORDERED: ZOFRAN ODT4 MG PO (21:22)
[2017-10-13 21:39] VITALS: BP 104/82
[2017-10-17] MEDS ORDERED: FLEXERIL10 MG PO (14:31)
[2017-10-17] MEDS ORDERED: DURAGESIC100 MCG TD (14:32)
== END 2017-10-13 21:42 | disposition home or self-care (01) ==
LOC: EME 17:17
PROVIDERS: Nurse Practitioner Family
DX: G89.29 Other chronic pain (principal); M54.9 Dorsalgia, unspecified; C50.919 Malignant neoplasm of unspecified site of unspecified female breast; C79.51 Secondary malignant neoplasm of bone; Z92.3 Personal history of irradiation; D64.9 Anemia, unspecified; E11.9 Type 2 diabetes mellitus without complications; I10 Essential (primary) hypertension; Z79.891 Long term (current) use of opiate analgesic; F32.9 Major depressive disorder, single episode, unspecified; F41.9 Anxiety disorder, unspecified; Z90.49 Acquired absence of other specified parts of digestive tract; Z87.891 Personal history of nicotine dependence
CPT/HCPCS: 80053; 85027; 99281; 99284; J2270; J2405; J2765; J3010

== ENCOUNTER 2018-02-25 14:33 | Inpatient (IN) | payer OTHER ==
[~2018-02-25] VITALS: Ht 170.2 cm; Wt 139.9 kg
[~2018-02-25 14:33] MED LIST changes: +DURAGESIC100 MCG TD
[2018-02-25 16:01] LABS: HEMATOCRIT 25.9 % (36.0-46.0); HEMOGLOBIN 9.3 G/DL (11.9-15.5); MCH 36.2 PG (29.0-34.0); MCHC 35.9 G/DL (30.0-36.0); MCV 100.8 FL (83-99); PLATELET COUNT 185 K/uL (156-360); RED BLOOD COUNT 2.57 M/uL (3.80-5.20); WHITE BLOOD COUNT 1.3 K/uL (4.1-10.2)
[2018-02-25 16:10] LABS: CHLORIDE 103 mEq/L (99-109); POTASSIUM 2.6 mEq/L (3.7-5.4); SODIUM 143 mEq/L (136-147)
[2018-02-25 16:12] LABS: GLUCOSE 119 mg/dL (70-99); TOTAL PROTEIN 7.9 g/dL (6.4-8.3)
[2018-02-25 16:14] LABS: TOTAL BILIRUBIN 0.6 mg/dL (0.0-1.0)
[2018-02-25 16:15] LABS: ALKALINE PHOSPHATASE 71 IU/L (3-129)
[2018-02-25 16:16] LABS: CREATININE 0.9 mg/dL (0.6-1.3); GFR ESTIMATE (CALCULATED) > 59 mL/min/
[2018-02-25 16:17] LABS: AST (GOT) 15 IU/L (2-34); UREA NITROGEN (BUN) 8 mg/dL (9-23)
[2018-02-25 16:19] LABS: ALT (GPT) 10 IU/L (3-49); LIPASE 3 U/L (1.0-51.0)
[2018-02-25 16:49] LABS: INTER. NORMALIZED RATIO 1.2
[2018-02-25 16:52] LABS: PTT 31.1 SEC (25-37)
[2018-02-25] MEDS ORDERED: QUETIAPINE FUMA50 MG PO (18:01)
[2018-02-25] MEDS ORDERED: ZOLOFT50 MG PO (18:05)
[2018-02-25] MEDS ORDERED: NARCAN4 MG NS (18:07)
[2018-02-25] MEDS ORDERED: LOMOTIL TABLET1 EACH PO (18:07)
[2018-02-25] MEDS ORDERED: ZOFRAN8 MG PO (18:07)
[2018-02-25 18:12] LABS: TROP-I INTERPRETATION NEGATIVE; TROPONIN-I < 0.01 ng/mL (0.0-0.30)
[2018-02-25 20:45] VITALS: BP 128/69
[2018-02-25 23:03] LABS: TROP-I INTERPRETATION NEGATIVE; TROPONIN-I 0.01 ng/mL (0.0-0.30)
[2018-02-26 04:09] VITALS: BP 125/63
[2018-02-26 05:41] LABS: HEMATOCRIT 22.8 % (36.0-46.0); HEMOGLOBIN 7.9 G/DL (11.9-15.5); MCH 36.2 PG (29.0-34.0); MCHC 34.6 G/DL (30.0-36.0); MCV 104.6 FL (83-99); PLATELET COUNT 154 K/uL (156-360); RBC DIS.WIDTH-CV 14.5 % (11.8-14.6); RBC DIS.WIDTH-SD 54.8 % (39-53); RED BLOOD COUNT 2.18 M/uL (3.80-5.20); WHITE BLOOD COUNT 1.1 K/uL (4.1-10.2)
[2018-02-26 05:47] LABS: TROP-I INTERPRETATION NEGATIVE; TROPONIN-I < 0.01 ng/mL (0.0-0.30)
[2018-02-26 06:52] LABS: CHLORIDE 105 MEQ/L (99-109); GFR ESTIMATE (CALCULATED) > 59 mL/min/; GLUCOSE 128 mg/dL (70-99); SODIUM 142 MEQ/L (136-147); UREA NITROGEN (BUN) 7 mg/dL (9-23)
[2018-02-26 06:57] LABS: ABS NEUTROPHIL COUNT 0.5; ANISOCYTOSIS 2+; ATYPICAL LYMPHOCYTE 4.5 %; BAND NEUTROPHILS 1.8 % (0-8.0); BASOPHILS 0.9 %; EOSINOPHIL ABS CT 0; LYMPHOCYTES 40.5 % (15.0-45.0); MACROCYTES 2+; MONOCYTES 7.2 % (0-9.0); PLAT.SUFFICIENCY DECREASED; SEG.NEUTROPHILS 45.1 % (46.0-76.0)
[2018-02-26 08:20] LABS: MAGNESIUM 1.8 mg/dl (1.3-2.7)
[2018-02-26 09:00] VITALS: BP 97/54
[2018-02-26 12:21] LABS: HEMOGLOBIN 8.3 G/DL (11.9-15.5); MCH 36.9 PG (29.0-34.0); MCHC 34.6 G/DL (30.0-36.0); MCV 106.7 FL (83-99); PLATELET COUNT 152 K/uL (156-360); RBC DIS.WIDTH-CV 14.6 % (11.8-14.6); RED BLOOD COUNT 2.25 M/uL (3.80-5.20)
[2018-02-26 12:23] VITALS: BP 110/72
[2018-02-26 12:31] LABS: WHITE BLOOD COUNT 1.1 K/uL (4.1-10.2)
[2018-02-26 13:15] LABS: ABS NEUTROPHIL COUNT 0.4; ANISOCYTOSIS 2+; ATYPICAL LYMPHOCYTE 1.8 %; BAND NEUTROPHILS 0.9 % (0-8.0); BASOPHILS 4.4 %; EOSINOPHIL ABS CT 0; EOSINOPHILS 0.9 % (0-5.0); LYMPHOCYTES 48.2 % (15.0-45.0); MACROCYTES 3+; MONOCYTES 4.5 % (0-9.0); NUCLEATED RBC'S 0.9; OTHER 3.6; OVALOCYTES 1+; PLAT.SUFFICIENCY ADEQUATE; POIKILOCYTOSIS 1+; SEG.NEUTROPHILS 35.7 % (46.0-76.0)
[2018-02-26 17:09] VITALS: BP 118/62
[2018-02-26 20:36] VITALS: BP 118/62
[2018-02-26 22:51] VITALS: BP 153/69
[2018-02-27 00:02] VITALS: BP 126/74
[2018-02-27 04:06] LABS: APPEARANCE CLEAR ((CLEAR)); BILIRUBIN NEGATIVE; BLOOD NEGATIVE; COLOR YELLOW ((YELLOW)); GLUCOSE (STRIP) NEGATIVE; KETONES NEGATIVE; LEUKOCYTES NEGATIVE; NITRITE NEGATIVE; PROTEIN (STRIP) NEGATIVE; UCUL ADDED? NO; UROBILINOGEN 0.2 MG/DL (0.2-1.0)
[2018-02-27 04:11] VITALS: BP 92/55
[2018-02-27 06:10] LABS: HEMOGLOBIN 7.8 G/DL (11.9-15.5); MCH 36.1 PG (29.0-34.0); MCHC 33.9 G/DL (30.0-36.0); MCV 106.5 FL (83-99); PLATELET COUNT 151 K/uL (156-360); RBC DIS.WIDTH-CV 14.7 % (11.8-14.6); RBC DIS.WIDTH-SD 57.6 % (39-53); RED BLOOD COUNT 2.16 M/uL (3.80-5.20)
[2018-02-27 06:11] LABS: WHITE BLOOD COUNT 1.5 K/uL (4.1-10.2)
[2018-02-27 06:14] LABS: ALBUMIN 3.5 G/DL (3.2-4.8); ALKALINE PHOSPHATASE 47 IU/L (3-129); ALT (GPT) 8 IU/L (3-49); AST (GOT) 13 IU/L (2-34); CHLORIDE 106 MEQ/L (99-109); GFR ESTIMATE (CALCULATED) > 59 mL/min/; GLUCOSE 135 mg/dL (70-99); POTASSIUM 3.2 MEQ/L (3.7-5.4); SODIUM 140 MEQ/L (136-147); TOTAL BILIRUBIN 0.4 MG/DL (0.0-1.0); TOTAL PROTEIN 6.5 G/DL (6.4-8.3); UREA NITROGEN (BUN) 7 mg/dL (9-23)
[2018-02-27 06:33] LABS: ANISOCYTOSIS 1+; BASOPHIL (%) 1.3 % (0-1); EOSINOPHIL (%) 0 % (0-5); IMMATURE GRANULOCYTE (%) 0.6 % (0.0-0.7); LYMPHOCYTE (%) 44.2 % (15-42); LYMPHOCYTE COUNT 0.7 K/uL (1.0-2.8); MACROCYTES 2+; MONOCYTE (%) 14.3 % (3-12); MONOCYTE COUNT 0.2 K/uL (0-0.8); NEUTROPHIL (%) 39.6 % (45-76); NEUTROPHIL COUNT 0.6 K/uL (1.8-6.4)
[2018-02-27 07:54] VITALS: BP 113/73
[2018-02-27 11:18] VITALS: BP 11/62
[2018-02-27 15:12] VITALS: BP 116/60
[2018-02-27 21:00] VITALS: BP 130/77
[2018-02-28 00:22] VITALS: BP 135/73
[2018-02-28 02:18] LABS: HEMATOCRIT 24.9 % (36.0-46.0); HEMOGLOBIN 8.4 G/DL (11.9-15.5); MCH 35.7 PG (29.0-34.0); MCHC 33.7 G/DL (30.0-36.0); PLATELET COUNT 151 K/uL (156-360); RBC DIS.WIDTH-SD 58.3 % (39-53); RED BLOOD COUNT 2.35 M/uL (3.80-5.20)
[2018-02-28 02:19] LABS: WHITE BLOOD COUNT 1.6 K/uL (4.1-10.2)
[2018-02-28 02:28] LABS: CHLORIDE 109 mEq/L (99-109); POTASSIUM 3.8 mEq/L (3.7-5.4); SODIUM 146 mEq/L (136-147)
[2018-02-28 02:32] LABS: TOTAL BILIRUBIN 0.5 mg/dL (0.0-1.0)
[2018-02-28 02:36] LABS: AST (GOT) 18 IU/L (2-34)
[2018-02-28 02:52] LABS: ABS NEUTROPHIL COUNT 0.6; ANISOCYTOSIS 1+; ATYPICAL LYMPHOCYTE 3.5 %; BASOPHILS 2.6 %; EOSINOPHIL ABS CT 0; GIANT PLATELETS 1+; MACROCYTES 1+; MONOCYTES 11.3 % (0-9.0); NUCLEATED RBC'S 0.9; OVALOCYTES 1+; PLAT.SUFFICIENCY ADEQUATE; POIKILOCYTOSIS 1+; SEG.NEUTROPHILS 35.6 % (46.0-76.0); SMUDGE CELLS 0.9; TEAR DROP CELLS 1+; TOX.VACUOLIZATION 1+
[2018-02-28 03:23] LABS: ALBUMIN 3.8 g/dL (3.2-4.8)
[2018-02-28 03:25] LABS: GLUCOSE 132 mg/dL (70-99)
[2018-02-28 03:29] LABS: ALKALINE PHOSPHATASE 61 IU/L (3-129); CREATININE 1.2 mg/dL (0.6-1.3); GFR ESTIMATE (CALCULATED) > 59 mL/min/
[2018-02-28 03:30] LABS: UREA NITROGEN (BUN) 7 mg/dL (9-23)
[2018-02-28 03:32] LABS: ALT (GPT) 11 IU/L (3-49)
[2018-02-28 04:15] VITALS: BP 135/82
[2018-02-28 10:33] VITALS: BP 108/56
[2018-02-28 12:22] VITALS: BP 107/56
[2018-02-28 15:04] VITALS: BP 132/56
[2018-02-28 19:34] VITALS: BP 113/58
[2018-03-01 00:43] VITALS: BP 121/62
[2018-03-01 03:49] VITALS: BP 133/65
[2018-03-01 05:32] LABS: HEMATOCRIT 23.7 % (36.0-46.0); MCH 36.5 PG (29.0-34.0); MCHC 33.8 G/DL (30.0-36.0); MCV 108.2 FL (83-99); PLATELET COUNT 157 K/uL (156-360); RBC DIS.WIDTH-CV 14.9 % (11.8-14.6); RBC DIS.WIDTH-SD 58.9 % (39-53); RED BLOOD COUNT 2.19 M/uL (3.80-5.20)
[2018-03-01 05:33] LABS: WHITE BLOOD COUNT 1.8 K/uL (4.1-10.2)
[2018-03-01 05:47] LABS: CHLORIDE 107 MEQ/L (99-109); GFR ESTIMATE (CALCULATED) > 59 mL/min/; GLUCOSE 129 mg/dL (70-99); MAGNESIUM 1.6 mg/dl (1.3-2.7); POTASSIUM 3.4 MEQ/L (3.7-5.4); SODIUM 142 MEQ/L (136-147); UREA NITROGEN (BUN) 6 mg/dL (9-23)
[2018-03-01 08:10] VITALS: BP 122/60
[2018-03-01 12:00] VITALS: BP 120/64
[2018-03-01 16:25] VITALS: BP 138/64
[2018-03-01 18:50] VITALS: BP 120/60
[2018-03-02 01:06] VITALS: BP 123/65
[2018-03-02 04:30] VITALS: BP 129/66
[2018-03-02 07:07] VITALS: BP 128/70
[2018-03-02 11:59] VITALS: BP 130/75
[2018-03-02 15:39] VITALS: BP 115/76
[2018-03-02 20:00] VITALS: BP 111/80
[2018-03-03] VITALS: BP 124/71
[2018-03-03 07:50] VITALS: BP 130/68
[2018-03-03] MEDS ORDERED: OXYCODONE HCL30 MG PO (09:26)
[2018-03-03] MEDS ORDERED: FLONASE16 G1 BOTH NARES (09:30)
[2018-03-03] MEDS ORDERED: BENZONATATE100 MG PO (09:31)
[2018-03-03] MEDS ORDERED: LORATADINE10 M2 PO (09:31)
[2018-03-03] MEDS ORDERED: LOVENOX40 MG/0.4 SC (09:51)
[2018-03-03] MEDS ORDERED: LOVENOX100 MG/1 M SC (09:51)
[2018-03-03 11:17] LABS: HEMATOCRIT 24.9 % (36.0-46.0); HEMOGLOBIN 8.4 G/DL (11.9-15.5); MCH 36.5 PG (29.0-34.0); MCHC 33.7 G/DL (30.0-36.0); MCV 108.3 FL (83-99); NRBC (%) 1.5 /100 WBC (0-0); PLATELET COUNT 197 K/uL (156-360); RBC DIS.WIDTH-CV 14.6 % (11.8-14.6); RBC DIS.WIDTH-SD 59.3 % (39-53)
[2018-03-03 11:19] LABS: WHITE BLOOD COUNT 1.9 K/uL (4.1-10.2)
[2018-03-03 11:31] VITALS: BP 132/63
[2018-03-03 11:34] LABS: ABS NEUTROPHIL COUNT 1.1; ANISOCYTOSIS 2+; BASOPHILS 3.5 %; EOSINOPHIL ABS CT 0; EOSINOPHILS 0.9 % (0-5.0); HEMATOLOGY COMMENT 1 OTHERS= IMMATURE MONONUCLEAR CELLS; LYMPHOCYTES 30.1 % (15.0-45.0); MACROCYTES 2+; METAMYELOCYTES 0.9 %; MONOCYTES 3.5 % (0-9.0); NUCLEATED RBC'S 0.9; OTHER 0.9
[2018-03-03 11:41] LABS: SEG.NEUTROPHILS 60.2 % (46.0-76.0)
== END 2018-03-03 12:45 | disposition home or self-care (01) | DRG 948 ==
LOC: EME 14:33 → 4SOUTH 18:56 → EDOF 18:56 → ENRESERV 18:59 → 4SOUTH 20:27 → ENPENDDIS 03-03 12:26 → 4SOUTH 03-03 12:45
PROVIDERS: Emergency Medicine; Hospitalist; Internal Medicine; Physician Assistant
DX: G89.3 Neoplasm related pain (acute) (chronic) (principal); C50.919 Malignant neoplasm of unspecified site of unspecified female breast; K52.9 Noninfective gastroenteritis and colitis, unspecified; D61.818 Other pancytopenia; D63.0 Anemia in neoplastic disease; E87.6 Hypokalemia; I10 Essential (primary) hypertension; E11.9 Type 2 diabetes mellitus without complications; E78.5 Hyperlipidemia, unspecified; F32.9 Major depressive disorder, single episode, unspecified; F41.9 Anxiety disorder, unspecified; R53.1 Weakness; R11.0 Nausea; C79.51 Secondary malignant neoplasm of bone; M54.30 Sciatica, unspecified side; T45.1X5A Adverse effect of antineoplastic and immunosuppressive drugs, initial encounter; K76.0 Fatty (change of) liver, not elsewhere classified; E66.01 Morbid (severe) obesity due to excess calories; Z86.711 Personal history of pulmonary embolism; Z17.0 Estrogen receptor positive status [ER+]; Z87.891 Personal history of nicotine dependence; Z68.42 Body mass index [BMI] 45.0-49.9, adult
CPT/HCPCS: 71045; 71275; 80048; 80053; 80202; 81003; 82948; 83690; 83735; 84484; 85025; 85025 91; 85027; 85610; 85730; 87040; 87641; 93005; 94640; 94799; 99281; 99285; G0378; J0456; J0692; J1170; J1644; J1650; J1815; J2405; J3010; J3370; J3480; J7030; J7040